=== PATIENT | male | born 1960 | race African-American/Black ===

== ENCOUNTER 2017-02-03 08:49 | Inpatient (IN) ==
[2017-02-03] MEDS ORDERED: ROCURONIUM 100 MG/10 ML VIAL IV STA ×2 (08:55→10:30)
[2017-02-03] MEDS ORDERED: NITROGLYCERIN DRIP 50 MG/250 ML BOTTLE IV ONE (08:58)
[2017-02-03] MEDS ORDERED: FUROSEMIDE 100 MG/10 ML VIAL ONE (08:58)
[2017-02-03] MEDS ORDERED: PROPOFOL 1,000 MG/100 ML BOTTLE IV ONE ×2 (08:58→11:45)
[2017-02-03] MEDS ORDERED: ETOMIDATE 20 MG/10 ML VIAL IV ONE ×2 (08:58→09:10)
[2017-02-03] MEDS: PROPOFOL 1,000 MG/100 ML BOTTLE IV SCH ×5 (09:00→22:06)
[2017-02-03] MEDS ORDERED: FUROSEMIDE 100 MG/10 ML VIAL IV STA (09:09)
[2017-02-03] MEDS: NITROGLYCERIN DRIP 50 MG/250 ML BOTTLE IV SCH (09:10)
[2017-02-03 09:55] LABS: ABG Base Excess 1.3 MMOL/L (-2.5-2.5); ABG HCO3 25.6 MMOL/L (20-26); ABG Oxygen Saturation 99.5 % (95-100); ABG PCO2 60.1 MM HG (35-48); ABG PH 7.299 (7.35-7.45)
[2017-02-03 10:16] LABS: Basophils # 0.1 10*3/uL (0.0-0.2); Basophils % 0.6 % (0.0-0.8); Eosinophils # 0.3 10*3/uL (0.0-0.87); Eosinophils % 3.2 % (0.00-10.9); Hematocrit 41.2 VOL% (42.0-52.0); Hemoglobin 13.8 GM/DL (14.0-18.0); Immature Granulocytes % 0.6 %; Immature Granulocytes Absolute 0.05 #; Lymphocytes # 3.7 10*3/uL (1.4-4.0); Lymphocytes % 43.8 % (21.2-54.2); Mean Corpuscular HGB Conc 33.5 GM/DL (32-36); Mean Corpuscular Hemoglobin 31 PG (27-34); Mean Corpuscular Volume 93.4 FL (87-102); Mean Platelet Volume 9.9 FL (9.6-12.0); Monocytes % 11.7 % (1.7-12.7); Neutrophils # 3.4 10*3/uL (1.4-7.4); Neutrophils % 40.1 % (38.7-73.9); Platelet Count 282 T/CUMM (130-400); Red Blood Count 4.41 MC/CUMM (3.8-5.5); Red Cell Distribution Width 12.4 % (9.3-17.3); White Blood Count 8.5 T/CUMM (4-12)
[2017-02-03] MEDS ORDERED: ROCURONIUM 100 MG/10 ML VIAL IV ONE (10:17)
[2017-02-03 10:23] LABS: INR 0.9; PT Patient Result 9.5 SECS; Partial Thromboplastin Time 23.8 SECS (0-40)
[2017-02-03 10:31] LABS: Apearance,Urine CLEAR (Clear); Bilirubin,Urine Negative (Negative); Blood, Urine Moderate mg/dL (Negative); Glucose,Urine (UA) Negative (Negative); Ketones,Urine Negative (Negative); Mucus,Urine Occasional /LPF (Occasional); Nitrite,Urine Negative (Negative); Protein,Urine 30 MG/DL; RBC,Urine 2 /HPF (0-4); Squamous Epithelial Cell,Urine Occasional /HPF (0-10); Urine Color Straw (Yellow); Urine Urobilinogen < 2.0 EU/DL (0.2-1.0)
[2017-02-03 10:40] LABS: Barbiturates Screen,Urine Negative (Negative); Benzodiazepines Screen,Urine Negative (Negative); Cannabinoid Screen,Urine Negative (Negative); Opiate Screen,Urine Positive (Negative); Phencyclidine Screen,Urine Negative (Negative)
[2017-02-03 10:55] LABS: Alanine Aminotransferase 30 U/L (16-61); Alkaline Phosphatase 100 U/L (45-117); Aspartate Amino Transferase 29 U/L (0-37); Blood Urea Nitrogen 18 MG/DL (7-18); Calcium 8.8 MG/DL (8.5-10.1); Glucose 139 MG/DL (74-106); Osmolality,Calculated 280.5 MOS/KG (273-304); Potassium 3.2 MMOL/L (3.5-5.1); Sodium 139 MMOL/L (136-145); Total Protein 8.1 G/DL (6.4-8.3); Troponin I Only < 0.015 NG/ML (0.00-0.045)
[2017-02-03] MEDS ORDERED: hydrALAZINE 20 MG/1 ML VIAL IV PRN (14:11)
[2017-02-03] MEDS ORDERED: HYDROmorphone 2 MG/1 ML VIAL ONE (14:16)
[2017-02-03] MEDS: HYDROmorphone 2 MG/1 ML VIAL IV SCH ×6 (14:31→23:40)
[2017-02-03 14:34] LABS: ABG Base Excess 2.4 MMOL/L (-2.5-2.5); ABG HCO3 26.5 MMOL/L (20-26); ABG Oxygen Saturation 98.9 % (95-100); ABG PCO2 49.1 MM HG (35-48); ABG PH 7.373 (7.35-7.45); ABG TCO2 24.9 MMOL/L (23-27)
[2017-02-03] MEDS: SODIUM CHLORIDE 0.9% 1,000 ML IV SCH ×2 (15:05→21:36)
[2017-02-03] MEDS: ENOXAPARIN 40 MG/0.4 ML SYRINGE SUBCUT SCH (15:45)
[2017-02-03 20:28] LABS: ABG Base Excess 3.7 MMOL/L (-2.5-2.5); ABG HCO3 27.7 MMOL/L (20-26); ABG Oxygen Saturation 97.7 % (95-100); ABG PCO2 53.2 MM HG (35-48); ABG PH 7.364 (7.35-7.45); ABG TCO2 26.9 MMOL/L (23-27); Allen Test Positive; Pt O2 Delivery Device Ventilator
[2017-02-04] MEDS: PROPOFOL 1,000 MG/100 ML BOTTLE IV SCH ×4 (00:52→11:00)
[2017-02-04] MEDS: HYDROmorphone 2 MG/1 ML VIAL IV SCH ×12 (02:00→22:56)
[2017-02-04 04:15] LABS: ABG Base Excess 3.8 MMOL/L (-2.5-2.5); ABG HCO3 29.8 MMOL/L (20-26); ABG Oxygen Saturation 98.3 % (95-100); ABG PCO2 50.9 MM HG (35-48); ABG PH 7.385 (7.35-7.45); ABG PO2 148.4 MM HG (80-95); ABG TCO2 31.3 MMOL/L (23-27); Allen Test Positive; Pt O2 Delivery Device Ventilator
[2017-02-04 05:13] LABS: Basophils % 0.3 % (0.0-0.8); Eosinophils # 0.1 10*3/uL (0.0-0.87); Eosinophils % 1.1 % (0.00-10.9); Hematocrit 35.4 VOL% (42.0-52.0); Hemoglobin 11.8 GM/DL (14.0-18.0); Immature Granulocytes % 0.5 %; Immature Granulocytes Absolute 0.05 #; Lymphocytes # 2.2 10*3/uL (1.4-4.0); Lymphocytes % 20.3 % (21.2-54.2); Mean Corpuscular HGB Conc 33.3 GM/DL (32-36); Mean Corpuscular Hemoglobin 32 PG (27-34); Mean Corpuscular Volume 94.4 FL (87-102); Monocytes # 1.5 10*3/uL (0.11-0.8); Monocytes % 13.9 % (1.7-12.7); Neutrophils # 6.9 10*3/uL (1.4-7.4); Neutrophils % 63.9 % (38.7-73.9); Platelet Count 233 T/CUMM (130-400); Red Blood Count 3.75 MC/CUMM (3.8-5.5); Red Cell Distribution Width 12.6 % (9.3-17.3); White Blood Count 10.8 T/CUMM (4-12)
[2017-02-04 05:55] LABS: Osmolality,Calculated 279.4 MOS/KG (273-304); Potassium 3.8 MMOL/L (3.5-5.1)
[2017-02-04] MEDS: SODIUM CHLORIDE 0.9% 1,000 ML IV SCH ×3 (06:18→22:57)
[2017-02-04] MEDS: NITROGLYCERIN DRIP 50 MG/250 ML BOTTLE IV SCH (09:02)
[2017-02-04] MEDS: methylPREDNISolone SOD SUC 40 MG/1 ML VIAL IV SCH ×2 (09:09→20:22)
[2017-02-04] MEDS: CEFEPIME 1,000 MG in SYRINGE 1 EACH IV SCH ×2 (09:12→20:23)
[2017-02-04 11:35] LABS: Allen Test Positive; Pt O2 Delivery Device Ventilator
[2017-02-04 11:36] LABS: ABG Base Excess 2.8 MMOL/L (-2.5-2.5); ABG HCO3 26.8 MMOL/L (20-26); ABG PCO2 49.4 MM HG (35-48); ABG PH 7.375 (7.35-7.45); ABG PO2 83.8 MM HG (80-95); ABG TCO2 25.5 MMOL/L (23-27)
[2017-02-04] MEDS: ALBUTEROL/IPRATROPIUM 3 ML NEB RESP TX SCH ×2 (12:12→19:27)
[2017-02-04 13:45] LABS: Allen Test Positive; Pt O2 Delivery Device Venturi Mask
[2017-02-04 14:01] LABS: ABG Base Excess 1.8 MMOL/L (-2.5-2.5); ABG HCO3 26.3 MMOL/L (20-26); ABG Oxygen Saturation 92.9 % (95-100); ABG PH 7.425 (7.35-7.45); ABG PO2 62.2 MM HG (80-95); ABG TCO2 27.6 MMOL/L (23-27)
[2017-02-04] MEDS: ENOXAPARIN 40 MG/0.4 ML SYRINGE SUBCUT SCH (14:42)
[2017-02-05] MEDS: HYDROmorphone 2 MG/1 ML VIAL IV SCH ×13 (00:33→22:04)
[2017-02-05] MEDS: ALBUTEROL/IPRATROPIUM 3 ML NEB RESP TX SCH ×4 (00:46→20:08)
[2017-02-05] MEDS: methylPREDNISolone SOD SUC 40 MG/1 ML VIAL IV SCH ×2 (08:18→20:44)
[2017-02-05] MEDS: SODIUM CHLORIDE 0.9% 1,000 ML IV SCH ×3 (08:20→16:30)
[2017-02-05] MEDS: CEFEPIME 1,000 MG in SYRINGE 1 EACH IV SCH ×2 (08:20→20:45)
[2017-02-05] MEDS: PROPOFOL 1,000 MG/100 ML BOTTLE IV SCH ×2 (09:09→11:53)
[2017-02-05] MEDS: NITROGLYCERIN DRIP 50 MG/250 ML BOTTLE IV SCH (09:09)
[2017-02-05] MEDS: PRAVASTATIN 20 MG TABLET PO SCH (10:19)
[2017-02-05] MEDS: VALSARTAN/HCTZ 160-12.5 MG TABLET PO SCH (10:19)
[2017-02-05] MEDS: PANTOPRAZOLE 40 MG TABLET PO SCH (10:19)
[2017-02-05] MEDS: DILTIAZEM CD 240 MG CAPSULE PO SCH (10:19)
[2017-02-05] MEDS: CETIRIZINE 10 MG TABLET PO SCH (10:19)
[2017-02-05] MEDS: ENOXAPARIN 40 MG/0.4 ML SYRINGE SUBCUT SCH (14:40)
[2017-02-05] MEDS ORDERED: LIDOCAINE 1% 20 ML VIAL MISC INJ ONE (19:16)
[2017-02-06] MEDS: SODIUM CHLORIDE 0.9% 1,000 ML IV SCH ×4 (00:33→16:53)
[2017-02-06] MEDS: HYDROmorphone 2 MG/1 ML VIAL IV SCH ×9 (00:33→21:05)
[2017-02-06] MEDS: ALBUTEROL/IPRATROPIUM 3 ML NEB RESP TX SCH ×4 (01:20→19:59)
[2017-02-06] MEDS: methylPREDNISolone SOD SUC 40 MG/1 ML VIAL IV SCH ×2 (08:56→22:19)
[2017-02-06] MEDS: CEFEPIME 1,000 MG in SYRINGE 1 EACH IV SCH ×2 (08:56→22:22)
[2017-02-06] MEDS: CETIRIZINE 10 MG TABLET PO SCH (08:57)
[2017-02-06] MEDS: DILTIAZEM CD 240 MG CAPSULE PO SCH (08:57)
[2017-02-06] MEDS: PANTOPRAZOLE 40 MG TABLET PO SCH (08:57)
[2017-02-06] MEDS: VALSARTAN/HCTZ 160-12.5 MG TABLET PO SCH (08:57)
[2017-02-06] MEDS: PRAVASTATIN 20 MG TABLET PO SCH (08:57)
[2017-02-06] MEDS: PROPOFOL 1,000 MG/100 ML BOTTLE IV SCH ×2 (10:51→12:22)
[2017-02-06] MEDS: NITROGLYCERIN DRIP 50 MG/250 ML BOTTLE IV SCH (10:52)
[2017-02-06] MEDS: ENOXAPARIN 40 MG/0.4 ML SYRINGE SUBCUT SCH (16:58)
[2017-02-07] MEDS: ALBUTEROL/IPRATROPIUM 3 ML NEB RESP TX SCH ×4 (00:40→19:19)
[2017-02-07] MEDS: SODIUM CHLORIDE 0.9% 1,000 ML IV SCH ×5 (00:54→17:11)
[2017-02-07] MEDS: HYDROmorphone 2 MG/1 ML VIAL IV SCH ×11 (01:00→21:33)
[2017-02-07 05:10] LABS: Basophils % 0.1 % (0.0-0.8); Hematocrit 31.7 VOL% (42.0-52.0); Hemoglobin 10.2 GM/DL (14.0-18.0); Immature Granulocytes % 1.4 %; Lymphocytes # 1.2 10*3/uL (1.4-4.0); Lymphocytes % 8.8 % (21.2-54.2); Mean Corpuscular HGB Conc 32.2 GM/DL (32-36); Mean Corpuscular Hemoglobin 31 PG (27-34); Mean Corpuscular Volume 96.9 FL (87-102); Monocytes # 0.7 10*3/uL (0.11-0.8); Monocytes % 5.3 % (1.7-12.7); Neutrophils # 11.8 10*3/uL (1.4-7.4); Neutrophils % 84.4 % (38.7-73.9); Platelet Count 250 T/CUMM (130-400); Red Blood Count 3.27 MC/CUMM (3.8-5.5); Red Cell Distribution Width 12.5 % (9.3-17.3)
[2017-02-07 05:38] LABS: Osmolality,Calculated 284.3 MOS/KG (273-304); Potassium 4.2 MMOL/L (3.5-5.1)
[2017-02-07] MEDS: CEFEPIME 1,000 MG in SYRINGE 1 EACH IV SCH ×2 (09:07→21:35)
[2017-02-07] MEDS: PANTOPRAZOLE 40 MG TABLET PO SCH (09:08)
[2017-02-07] MEDS: CETIRIZINE 10 MG TABLET PO SCH (09:08)
[2017-02-07] MEDS: VALSARTAN/HCTZ 160-12.5 MG TABLET PO SCH (09:08)
[2017-02-07] MEDS: PRAVASTATIN 20 MG TABLET PO SCH (09:08)
[2017-02-07] MEDS: DILTIAZEM CD 240 MG CAPSULE PO SCH (09:08)
[2017-02-07] MEDS: methylPREDNISolone SOD SUC 40 MG/1 ML VIAL IV SCH ×2 (09:11→21:30)
[2017-02-07] MEDS: PROPOFOL 1,000 MG/100 ML BOTTLE IV SCH (10:53)
[2017-02-07] MEDS: NITROGLYCERIN DRIP 50 MG/250 ML BOTTLE IV SCH (10:54)
[2017-02-07] MEDS: ENOXAPARIN 40 MG/0.4 ML SYRINGE SUBCUT SCH (16:56)
[2017-02-08] MEDS: ALBUTEROL/IPRATROPIUM 3 ML NEB RESP TX SCH ×3 (01:05→12:13)
[2017-02-08] MEDS: HYDROmorphone 2 MG/1 ML VIAL IV SCH ×6 (01:37→12:52)
[2017-02-08] MEDS: SODIUM CHLORIDE 0.9% 1,000 ML IV SCH ×3 (02:00→07:53)
[2017-02-08] MEDS: PANTOPRAZOLE 40 MG TABLET PO SCH (09:00)
[2017-02-08] MEDS: PRAVASTATIN 20 MG TABLET PO SCH (09:00)
[2017-02-08] MEDS: DILTIAZEM CD 240 MG CAPSULE PO SCH (09:00)
[2017-02-08] MEDS: CETIRIZINE 10 MG TABLET PO SCH (09:00)
[2017-02-08] MEDS: VALSARTAN/HCTZ 160-12.5 MG TABLET PO SCH (09:00)
[2017-02-08] MEDS: NITROGLYCERIN DRIP 50 MG/250 ML BOTTLE IV SCH (10:29)
[2017-02-08 11:22] VITALS: BP 179/94
== END 2017-02-08 13:00 | disposition home or self-care (01) | DRG 208 ==
LOC: EDUNIT# → EDBD → N.ED 08:49 → SUATTDRO 09:44 → N.EDINP 09:44 → N.CC 13:54
PROVIDERS: ATTEND Internal Medicine Geriatric Medicine

== ENCOUNTER 2017-02-14 11:03 | Inpatient (IN) ==
[2017-02-14 11:44] LABS: Basophils % 0.3 % (0.0-0.8); Eosinophils # 0.2 10*3/uL (0.0-0.87); Eosinophils % 1.6 % (0.00-10.9); Hematocrit 39.6 VOL% (42.0-52.0); Hemoglobin 13.3 GM/DL (14.0-18.0); Immature Granulocytes % 1.7 %; Immature Granulocytes Absolute 0.16 #; Lymphocytes # 2.2 10*3/uL (1.4-4.0); Lymphocytes % 23.6 % (21.2-54.2); Mean Corpuscular HGB Conc 33.6 GM/DL (32-36); Mean Corpuscular Hemoglobin 32 PG (27-34); Mean Corpuscular Volume 94.1 FL (87-102); Mean Platelet Volume 9.8 FL (9.6-12.0); Monocytes # 1.3 10*3/uL (0.11-0.8); Monocytes % 14.2 % (1.7-12.7); Neutrophils # 5.4 10*3/uL (1.4-7.4); Neutrophils % 58.6 % (38.7-73.9); Platelet Count 355 T/CUMM (130-400); Red Blood Count 4.21 MC/CUMM (3.8-5.5); Red Cell Distribution Width 12.6 % (9.3-17.3); White Blood Count 9.2 T/CUMM (4-12)
[2017-02-14] MEDS ORDERED: PROPOFOL 200 MG/20 ML VIAL IV ONE (11:58)
[2017-02-14] MEDS ORDERED: ONDANSETRON 4 MG/2 ML VIAL ONE (12:24)
[2017-02-14] MEDS ORDERED: HYDROmorphone 2 MG/1 ML VIAL ONE (12:24)
[2017-02-14] MEDS ORDERED: ACETAMINOPHEN 325 MG TABLET PO PRN (12:44)
[2017-02-14] MEDS ORDERED: ONDANSETRON 4 MG/2 ML VIAL IV PRN (12:44)
[2017-02-14 13:20] LABS: Albumin 3.5 G/DL (3.4-5.0); Bilirubin,Total 0.6 MG/DL (0.2-1.0); Calcium 8.8 MG/DL (8.5-10.1); Potassium 4.7 MMOL/L (3.5-5.1); Total Protein 7.7 G/DL (6.4-8.3)
[2017-02-14] MEDS ORDERED: HYDROmorphone 2 MG/1 ML VIAL IV STA (14:28)
[2017-02-14] MEDS: MORPHINE 2 MG/1 ML SYRINGE IV PRN ×2 (17:29→21:39)
[2017-02-15] MEDS: MORPHINE 2 MG/1 ML SYRINGE IV PRN ×2 (01:25→05:50)
[2017-02-15] MEDS: PANTOPRAZOLE 40 MG TABLET PO SCH (08:56)
[2017-02-15] MEDS: KETOROLAC 30 MG/1 ML VIAL IV SCH ×3 (09:57→21:40)
[2017-02-16] MEDS ORDERED: BUPIVACAINE LIPOSOMAL 20 ML/266 MG VIAL INFILTRAT ONE (00:01)
[2017-02-16] MEDS: CEFUROXIME INJ 1,500 MG in SYRINGE 1 EACH IV SCH ×4 (01:15→23:27)
[2017-02-16] MEDS: HYDROmorphone 2 MG/1 ML VIAL IV PRN ×3 (01:21→23:43)
[2017-02-16] MEDS: KETOROLAC 30 MG/1 ML VIAL IV SCH ×4 (05:12→22:25)
[2017-02-16] MEDS: PANTOPRAZOLE 40 MG TABLET PO SCH (10:01)
[2017-02-16] MEDS ORDERED: TISSUE ADHESIVE 1 EACH APPLICATOR TOP ONE (10:09)
[2017-02-16] MEDS ORDERED: TALC INTRAPLEURAL POWDER 5 GM BOTTLE INTRAPLEUR ONE (10:10)
[2017-02-16] MEDS ORDERED: BUPIVACAINE LIPOSOMAL 20 ML/266 MG VIAL ONE (10:10)
[2017-02-16] MEDS ORDERED: ALBUTEROL/IPRATROPIUM 3 ML NEB RESP TX ONE (10:21)
[2017-02-16] MEDS ORDERED: ALBUTEROL 2.5 MG/3 ML NEB RESP TX ONE ×2 (10:39→12:49)
[2017-02-16] MEDS ORDERED: KETOROLAC 30 MG/1 ML VIAL ONE ×2 (12:46→13:02)
[2017-02-16] MEDS ORDERED: ACETAMINOPHEN 1,000 MG/100 ML VIAL IV ONE (12:46)
[2017-02-16] MEDS ORDERED: ACETAMINOPHEN INJ 1,000 MG in PREMIX 1 EACH IV ONE (12:48)
[2017-02-16] MEDS ORDERED: KETOROLAC 30 MG/1 ML VIAL IV ONE (12:48)
[2017-02-16] MEDS ORDERED: fentaNYL 100 MCG/2 ML VIAL ONE (13:02)
[2017-02-16] MEDS ORDERED: DEXAMETHASONE 4 MG/1 ML VIAL ONE (13:02)
[2017-02-16] MEDS ORDERED: PROPOFOL 200 MG/20 ML VIAL IV ONE (13:02)
[2017-02-16] MEDS ORDERED: SEVOFLURANE 1 UNIT/15 MINUTE INH ONE (13:02)
[2017-02-16] MEDS ORDERED: LABETALOL 100 MG/20 ML VIAL IV ONE (13:02)
[2017-02-16] MEDS ORDERED: DEXAMETHASONE 10 MG/1 ML VIAL ONE (13:02)
[2017-02-16] MEDS ORDERED: ONDANSETRON 4 MG/2 ML VIAL ONE (13:02)
[2017-02-16] MEDS ORDERED: MIDAZOLAM 2 MG/2 ML VIAL ONE (13:02)
[2017-02-16] MEDS ORDERED: PHENYLEPHRINE 50 MG/5 ML VIAL ONE (13:03)
[2017-02-16] MEDS ORDERED: SUCCINYLCHOLINE 200 MG/10 ML VIAL ONE (13:03)
[2017-02-16] MEDS ORDERED: GLYCOPYRROLATE 0.4 MG/2 ML VIAL ONE (13:03)
[2017-02-16] MEDS ORDERED: LACTATED RINGERS 1,000 ML IV ONE (13:03)
[2017-02-16] MEDS ORDERED: ESMOLOL 100 MG/10 ML VIAL IV ONE (13:03)
[2017-02-16] MEDS ORDERED: ROCURONIUM 100 MG/10 ML VIAL IV ONE (13:03)
[2017-02-16 13:04] LABS: Apearance,Urine CLEAR (Clear); Bacteria,Urine Occasional /HPF (Few); Bilirubin,Urine Negative (Negative); Blood, Urine Moderate mg/dL (Negative); Glucose,Urine (UA) Negative (Negative); Hyaline Casts,Urine 2 /LPF (0-3); Ketones,Urine 5 mg/dL (Negative); Mucus,Urine Occasional /LPF (Occasional); Nitrite,Urine Negative (Negative); Protein,Urine 30 MG/DL; RBC,Urine 13 /HPF (0-4); Squamous Epithelial Cell,Urine Occasional /HPF (0-10); Urine Color Amber (Yellow); WBC,Urine 2 /HPF (0-6)
[2017-02-16 15:35] LABS: Basophils % 0.2 % (0.0-0.8); Eosinophils % 0.1 % (0.00-10.9); Hematocrit 34.8 VOL% (42.0-52.0); Hemoglobin 11.5 GM/DL (14.0-18.0); Immature Granulocytes % 1.1 %; Lymphocytes # 0.8 10*3/uL (1.4-4.0); Lymphocytes % 4.4 % (21.2-54.2); Mean Corpuscular Hemoglobin 31 PG (27-34); Mean Corpuscular Volume 94.3 FL (87-102); Mean Platelet Volume 9.6 FL (9.6-12.0); Monocytes # 0.9 10*3/uL (0.11-0.8); Monocytes % 4.8 % (1.7-12.7); Neutrophils # 15.9 10*3/uL (1.4-7.4); Neutrophils % 89.4 % (38.7-73.9); Platelet Count 337 T/CUMM (130-400); Red Blood Count 3.69 MC/CUMM (3.8-5.5); Red Cell Distribution Width 12.5 % (9.3-17.3); White Blood Count 17.8 T/CUMM (4-12)
[2017-02-16 16:01] LABS: Calcium 8.1 MG/DL (8.5-10.1); Osmolality,Calculated 275.7 MOS/KG (273-304); Potassium 4.6 MMOL/L (3.5-5.1)
[2017-02-16 16:07] LABS: Band Neutrophils 3 % (0-10); Lymphocytes 2 % (20-55); Platelet Estimate Normal; Segmented Neutrophils 89 % (50-85); Total Cells Counted 100
[2017-02-16] MEDS: KETOROLAC 15 MG/1 ML VIAL IV SCH ×2 (16:59→20:56)
[2017-02-16] MEDS: GABAPENTIN 100 MG CAPSULE PO SCH (20:41)
[2017-02-16] MEDS: ACETAMINOPHEN INJ 1,000 MG in PREMIX 1 EACH IV SCH (20:57)
[2017-02-16] MEDS ORDERED: CEFUROXIME INJ 1,500 MG in SYRINGE 1 EACH IV SCH (22:27)
[2017-02-17] MEDS: KETOROLAC 15 MG/1 ML VIAL IV SCH ×4 (02:07→21:00)
[2017-02-17] MEDS: ACETAMINOPHEN INJ 1,000 MG in PREMIX 1 EACH IV SCH (02:08)
[2017-02-17] MEDS: KETOROLAC 30 MG/1 ML VIAL IV SCH (04:35)
[2017-02-17 05:02] LABS: Basophils # 0.1 10*3/uL (0.0-0.2); Basophils % 0.3 % (0.0-0.8); Hematocrit 32.5 VOL% (42.0-52.0); Hemoglobin 10.8 GM/DL (14.0-18.0); Immature Granulocytes % 1.1 %; Immature Granulocytes Absolute 0.27 #; Lymphocytes # 1.4 10*3/uL (1.4-4.0); Mean Corpuscular HGB Conc 33.2 GM/DL (32-36); Mean Corpuscular Hemoglobin 31 PG (27-34); Mean Corpuscular Volume 94.5 FL (87-102); Mean Platelet Volume 9.8 FL (9.6-12.0); Monocytes # 2.4 10*3/uL (0.11-0.8); Monocytes % 10.2 % (1.7-12.7); Neutrophils # 19.8 10*3/uL (1.4-7.4); Neutrophils % 82.4 % (38.7-73.9); Platelet Count 344 T/CUMM (130-400); Red Blood Count 3.44 MC/CUMM (3.8-5.5); Red Cell Distribution Width 12.3 % (9.3-17.3)
[2017-02-17 05:25] LABS: Calcium 8.1 MG/DL (8.5-10.1); Osmolality,Calculated 277.7 MOS/KG (273-304); Potassium 4.9 MMOL/L (3.5-5.1)
[2017-02-17] MEDS: HYDROmorphone 2 MG/1 ML VIAL IV PRN ×3 (05:27→13:12)
[2017-02-17] MEDS ORDERED: traMADol 50 MG TABLET PO PRN (06:00)
[2017-02-17 07:14] LABS: Giant Platelets Few; Hypochromasia Slight; Lymphocytes 8 % (20-55); Platelet Estimate Adequate; Segmented Neutrophils 85 % (50-85); Total Cells Counted 100
[2017-02-17] MEDS: CELECOXIB 200 MG CAPSULE PO SCH ×2 (08:29→21:00)
[2017-02-17] MEDS: GABAPENTIN 100 MG CAPSULE PO SCH ×3 (08:29→21:00)
[2017-02-17] MEDS: ACETAMINOPHEN 500 MG TABLET PO SCH ×3 (08:29→21:01)
[2017-02-17] MEDS: PANTOPRAZOLE 40 MG TABLET PO SCH (08:29)
[2017-02-17] MEDS ORDERED: PANTOPRAZOLE 40 MG VIAL IV SCH (09:00)
[2017-02-17] MEDS: CEFUROXIME INJ 1,500 MG in SYRINGE 1 EACH IV SCH ×3 (10:33→23:52)
[2017-02-17] MEDS ORDERED: FLUTICASONE 50 MCG NASAL SPRAY 16 GM BOTTLE BOTH NARES PRN (15:21)
[2017-02-17] MEDS: DILTIAZEM CD 240 MG CAPSULE PO SCH (15:58)
[2017-02-17] MEDS: PRAVASTATIN 20 MG TABLET PO SCH (15:58)
[2017-02-17] MEDS: CETIRIZINE 10 MG TABLET PO SCH (15:58)
[2017-02-17] MEDS: VALSARTAN/HCTZ 160-12.5 MG TABLET PO SCH (15:58)
[2017-02-18] MEDS: ACETAMINOPHEN 500 MG TABLET PO SCH ×4 (01:34→20:43)
[2017-02-18] MEDS: KETOROLAC 15 MG/1 ML VIAL IV SCH ×2 (01:34→08:55)
[2017-02-18 05:07] LABS: Basophils % 0.2 % (0.0-0.8); Eosinophils # 0.1 10*3/uL (0.0-0.87); Eosinophils % 0.6 % (0.00-10.9); Hematocrit 30.4 VOL% (42.0-52.0); Immature Granulocytes % 0.8 %; Immature Granulocytes Absolute 0.14 #; Lymphocytes # 2.7 10*3/uL (1.4-4.0); Lymphocytes % 15.6 % (21.2-54.2); Mean Corpuscular HGB Conc 32.9 GM/DL (32-36); Mean Corpuscular Hemoglobin 31 PG (27-34); Mean Corpuscular Volume 94.1 FL (87-102); Mean Platelet Volume 9.9 FL (9.6-12.0); Monocytes # 1.6 10*3/uL (0.11-0.8); Monocytes % 9.6 % (1.7-12.7); Neutrophils # 12.5 10*3/uL (1.4-7.4); Neutrophils % 73.2 % (38.7-73.9); Platelet Count 350 T/CUMM (130-400); Red Blood Count 3.23 MC/CUMM (3.8-5.5); Red Cell Distribution Width 12.9 % (9.3-17.3); White Blood Count 17.1 T/CUMM (4-12)
[2017-02-18 05:34] LABS: Osmolality,Calculated 290.1 MOS/KG (273-304); Potassium 3.8 MMOL/L (3.5-5.1)
[2017-02-18] MEDS: CELECOXIB 200 MG CAPSULE PO SCH ×2 (08:54→21:17)
[2017-02-18] MEDS: GABAPENTIN 100 MG CAPSULE PO SCH ×3 (08:54→21:17)
[2017-02-18] MEDS: VALSARTAN/HCTZ 160-12.5 MG TABLET PO SCH (08:55)
[2017-02-18] MEDS: CETIRIZINE 10 MG TABLET PO SCH (08:55)
[2017-02-18] MEDS: DILTIAZEM CD 240 MG CAPSULE PO SCH (08:55)
[2017-02-18] MEDS: PANTOPRAZOLE 40 MG TABLET PO SCH (08:55)
[2017-02-18] MEDS: PRAVASTATIN 20 MG TABLET PO SCH (08:55)
[2017-02-18] MEDS: CEFUROXIME INJ 1,500 MG in SYRINGE 1 EACH IV SCH ×2 (08:56→15:15)
[2017-02-18] MEDS ORDERED: BISACODYL 5 MG TABLET PO PRN (19:03)
[2017-02-18] MEDS: HYDROmorphone 2 MG/1 ML VIAL IV PRN (22:49)
[2017-02-19] MEDS: CEFUROXIME INJ 1,500 MG in SYRINGE 1 EACH IV SCH ×3 (00:20→16:36)
[2017-02-19] MEDS: ACETAMINOPHEN 500 MG TABLET PO SCH ×4 (02:06→21:00)
[2017-02-19] MEDS: HYDROmorphone 2 MG/1 ML VIAL IV PRN ×2 (04:30→15:24)
[2017-02-19 05:54] LABS: Basophils # 0.1 10*3/uL (0.0-0.2); Basophils % 0.4 % (0.0-0.8); Eosinophils # 0.4 10*3/uL (0.0-0.87); Eosinophils % 2.4 % (0.00-10.9); Hematocrit 30.9 VOL% (42.0-52.0); Immature Granulocytes % 1.5 %; Immature Granulocytes Absolute 0.21 #; Lymphocytes # 3.1 10*3/uL (1.4-4.0); Lymphocytes % 21.2 % (21.2-54.2); Mean Corpuscular HGB Conc 32.4 GM/DL (32-36); Mean Corpuscular Hemoglobin 31 PG (27-34); Mean Corpuscular Volume 95.4 FL (87-102); Mean Platelet Volume 10.1 FL (9.6-12.0); Monocytes # 1.8 10*3/uL (0.11-0.8); Monocytes % 12.4 % (1.7-12.7); NRBC # 0.02 10*3/uL; Neutrophils % 62.1 % (38.7-73.9); Platelet Count 400 T/CUMM (130-400); Red Blood Count 3.24 MC/CUMM (3.8-5.5); Red Cell Distribution Width 13.2 % (9.3-17.3); White Blood Count 14.4 T/CUMM (4-12)
[2017-02-19 06:18] LABS: Calcium 8.1 MG/DL (8.5-10.1); Osmolality,Calculated 284.3 MOS/KG (273-304); Potassium 4.5 MMOL/L (3.5-5.1)
[2017-02-19] MEDS: PANTOPRAZOLE 40 MG TABLET PO SCH (08:35)
[2017-02-19] MEDS: CETIRIZINE 10 MG TABLET PO SCH (08:36)
[2017-02-19] MEDS: PRAVASTATIN 20 MG TABLET PO SCH (08:36)
[2017-02-19] MEDS: CELECOXIB 200 MG CAPSULE PO SCH ×2 (08:36→21:25)
[2017-02-19] MEDS: VALSARTAN/HCTZ 160-12.5 MG TABLET PO SCH (08:36)
[2017-02-19] MEDS: DILTIAZEM CD 240 MG CAPSULE PO SCH (08:36)
[2017-02-19] MEDS: GABAPENTIN 100 MG CAPSULE PO SCH ×3 (08:37→21:25)
[2017-02-19] MEDS: ONDANSETRON 4 MG/2 ML VIAL IV PRN ×2 (10:50→21:25)
[2017-02-19] MEDS ORDERED: MAGNESIUM HYDROXIDE SUSP 30 ML UDCUP PO PRN (14:43)
[2017-02-19] MEDS: ALBUTEROL/IPRATROPIUM 3 ML NEB RESP TX SCH ×3 (16:48→23:02)
[2017-02-20] MEDS: ACETAMINOPHEN 500 MG TABLET PO SCH ×4 (02:00→21:51)
[2017-02-20] MEDS: ALBUTEROL/IPRATROPIUM 3 ML NEB RESP TX SCH ×5 (03:15→19:36)
[2017-02-20] MEDS: VALSARTAN/HCTZ 160-12.5 MG TABLET PO SCH (09:53)
[2017-02-20] MEDS: CELECOXIB 200 MG CAPSULE PO SCH ×2 (09:53→20:56)
[2017-02-20] MEDS: DILTIAZEM CD 240 MG CAPSULE PO SCH (09:53)
[2017-02-20] MEDS: CETIRIZINE 10 MG TABLET PO SCH (09:54)
[2017-02-20] MEDS: GABAPENTIN 100 MG CAPSULE PO SCH ×3 (09:54→20:56)
[2017-02-20] MEDS: PANTOPRAZOLE 40 MG TABLET PO SCH (09:54)
[2017-02-20] MEDS: PRAVASTATIN 20 MG TABLET PO SCH (09:54)
[2017-02-20] MEDS: CEFUROXIME INJ 1,500 MG in SYRINGE 1 EACH IV SCH ×3 (09:55→17:19)
[2017-02-20] MEDS: HYDROmorphone 2 MG/1 ML VIAL IV PRN ×2 (11:49→17:56)
[2017-02-21] MEDS: CEFUROXIME INJ 1,500 MG in SYRINGE 1 EACH IV SCH ×2 (00:06→08:36)
[2017-02-21] MEDS: ALBUTEROL/IPRATROPIUM 3 ML NEB RESP TX SCH ×3 (01:42→07:22)
[2017-02-21] MEDS: ACETAMINOPHEN 500 MG TABLET PO SCH ×2 (02:05→08:35)
[2017-02-21] MEDS: HYDROmorphone 2 MG/1 ML VIAL IV PRN ×2 (02:12→08:36)
[2017-02-21 07:47] VITALS: BP 122/56
[2017-02-21] MEDS: VALSARTAN/HCTZ 160-12.5 MG TABLET PO SCH (08:34)
[2017-02-21] MEDS: CETIRIZINE 10 MG TABLET PO SCH (08:35)
[2017-02-21] MEDS: DILTIAZEM CD 240 MG CAPSULE PO SCH (08:35)
[2017-02-21] MEDS: PRAVASTATIN 20 MG TABLET PO SCH (08:35)
[2017-02-21] MEDS: CELECOXIB 200 MG CAPSULE PO SCH (08:35)
[2017-02-21] MEDS: GABAPENTIN 100 MG CAPSULE PO SCH (08:35)
[2017-02-21] MEDS: PANTOPRAZOLE 40 MG TABLET PO SCH (08:35)
== END 2017-02-21 09:55 | disposition home health service (06) | DRG 165 ==
LOC: N.ED 11:03 → N.EDINP 12:43 → N.5E 15:42 → N.ICU 02-16 13:42 → N.TELES 02-17 15:20
PROVIDERS: ADMIT Surgery; ATTEND Thoracic Surgery (Cardiothoracic Vascular Surgery)

== ENCOUNTER 2018-02-12 05:47 | Inpatient (IN) ==
[2018-02-12] MEDS ORDERED: ALUM/MAG/SIMETH/LIDO VISC 1:1 30 ML BOTTLE PO STA (06:11)
[2018-02-12] MEDS ORDERED: PANTOPRAZOLE 40 MG VIAL IV STA (06:11)
[2018-02-12] MEDS ORDERED: ONDANSETRON 4 MG/2 ML VIAL IV STA (06:11)
[2018-02-12 06:45] LABS: Basophils % 0.4 % (0.0-0.8); Eosinophils # 0.2 10*3/uL (0.0-0.87); Eosinophils % 2.1 % (0.00-10.9); Hematocrit 35.3 VOL% (42.0-52.0); Hemoglobin 11.7 GM/DL (14.0-18.0); Immature Granulocytes % 0.4 %; Immature Granulocytes Absolute 0.04 #; Lymphocytes # 2.8 10*3/uL (1.4-4.0); Lymphocytes % 31.2 % (21.2-54.2); Mean Corpuscular HGB Conc 33.1 GM/DL (32-36); Mean Corpuscular Hemoglobin 31 PG (27-34); Mean Corpuscular Volume 92.7 FL (87-102); Mean Platelet Volume 9.9 FL (9.6-12.0); Monocytes # 0.8 10*3/uL (0.11-0.8); Monocytes % 9.3 % (1.7-12.7); Neutrophils % 56.6 % (38.7-73.9); Platelet Count 264 T/CUMM (130-400); Red Blood Count 3.81 MC/CUMM (3.8-5.5); Red Cell Distribution Width 12.2 % (9.3-17.3); White Blood Count 8.9 T/CUMM (4-12)
[2018-02-12] MEDS ORDERED: PIPERACILLIN/TAZOBACTAM 3,375 MG in SODIUM CHLORIDE 0.9% 100 ML IV STA (06:49)
[2018-02-12 07:05] LABS: Albumin 3.7 G/DL (3.4-5.0); Bilirubin,Total 0.4 MG/DL (0.2-1.0); Calcium 8.8 MG/DL (8.5-10.1); Osmolality,Calculated 273.8 MOS/KG (273-304); Potassium 3.8 MMOL/L (3.5-5.1)
[2018-02-12 08:43] LABS: Apearance,Urine CLEAR (Clear); Bilirubin,Urine Negative (Negative); Blood, Urine Small mg/dL (Negative); Glucose,Urine (UA) Negative (Negative); Ketones,Urine Negative (Negative); Nitrite,Urine Negative (Negative); Protein,Urine Negative; RBC,Urine <1 /HPF (0-4); Squamous Epithelial Cell,Urine Occasional /HPF (0-10); Urine Color Yellow (Yellow); Urine Specific Gravity 1.019 (1.001-1.035); Urine Urobilinogen < 2.0 EU/DL (0.2-1.0); WBC,Urine <1 /HPF (0-6)
[2018-02-12] MEDS: PANTOPRAZOLE 40 MG TABLET PO SCH (10:36)
[2018-02-12] MEDS ORDERED: cefOXitin 2,000 MG in SYRINGE 1 EACH IV ONE ×2 (12:14→12:30)
[2018-02-12] MEDS: ENOXAPARIN 40 MG/0.4 ML SYRINGE SUBCUT SCH (12:35)
[2018-02-12] MEDS ORDERED: TISSUE ADHESIVE 1 EACH APPLICATOR TOP ONE (12:40)
[2018-02-12] MEDS ORDERED: LIDOCAINE 1%/EPI INJ 20 ML VIAL ONE (12:40)
[2018-02-12] MEDS: LACTATED RINGERS 1,000 ML IV SCH ×2 (13:54→18:30)
[2018-02-12] MEDS ORDERED: CHLORPHENIRAMINE PO PRN (14:30)
[2018-02-12] MEDS ORDERED: ALBUTEROL/IPRATROPIUM 3 ML NEB RESP TX PRN (14:30)
[2018-02-12] MEDS ORDERED: BISACODYL 5 MG TABLET PO PRN (14:30)
[2018-02-12] MEDS ORDERED: PHENYLEPHRINE PO PRN (14:30)
[2018-02-12] MEDS ORDERED: ONDANSETRON 4 MG/2 ML VIAL ONE ×2 (14:38→14:47)
[2018-02-12] MEDS ORDERED: HYDROmorphone 2 MG/1 ML VIAL ONE (14:38)
[2018-02-12] MEDS ORDERED: ONDANSETRON 4 MG/2 ML VIAL IV PRN (14:39)
[2018-02-12] MEDS: HYDROmorphone 2 MG/1 ML VIAL IV PRN ×5 (14:40→18:47)
[2018-02-12] MEDS ORDERED: SEVOFLURANE 1 UNIT/15 MINUTE INH ONE (14:46)
[2018-02-12] MEDS ORDERED: fentaNYL 100 MCG/2 ML VIAL ONE (14:46)
[2018-02-12] MEDS ORDERED: PROPOFOL 200 MG/20 ML VIAL IV ONE (14:46)
[2018-02-12] MEDS ORDERED: ROCURONIUM 100 MG/10 ML VIAL IV ONE (14:47)
[2018-02-12] MEDS ORDERED: METOPROLOL TARTRATE 5 MG/5 ML VIAL IV ONE (14:47)
[2018-02-12] MEDS ORDERED: MIDAZOLAM 2 MG/2 ML VIAL ONE (14:47)
[2018-02-12] MEDS ORDERED: hydrALAZINE 20 MG/1 ML VIAL IV ONE (14:47)
[2018-02-12] MEDS ORDERED: ACETAMINOPHEN 1,000 MG/100 ML VIAL IV ONE (14:47)
[2018-02-12] MEDS ORDERED: MEPERIDINE 25 MG/1 ML VIAL ONE (15:03)
[2018-02-12] MEDS: MEPERIDINE 25 MG/1 ML VIAL IV PRN (15:07)
[2018-02-12] MEDS: PIPERACILLIN/TAZOBACTAM 3,375 MG in SODIUM CHLORIDE 0.9% 100 ML IV SCH ×2 (15:53→23:19)
[2018-02-12] MEDS: SIMVASTATIN 10 MG TABLET PO SCH (21:19)
[2018-02-12] MEDS: FERROUS SULFATE 325 MG TABLET PO SCH (21:19)
[2018-02-12] MEDS: ACETAMINOPHEN 325 MG TABLET PO PRN (23:15)
[2018-02-13] MEDS: LACTATED RINGERS 1,000 ML IV SCH ×2 (00:46→05:36)
[2018-02-13] MEDS: HYDROmorphone 2 MG/1 ML VIAL IV PRN ×4 (01:01→21:22)
[2018-02-13] MEDS: PIPERACILLIN/TAZOBACTAM 3,375 MG in SODIUM CHLORIDE 0.9% 100 ML IV SCH ×2 (06:00→14:17)
[2018-02-13 06:48] LABS: Basophils % 0.3 % (0.0-0.8); Eosinophils # 0.1 10*3/uL (0.0-0.87); Eosinophils % 0.9 % (0.00-10.9); Hematocrit 33.4 VOL% (42.0-52.0); Hemoglobin 10.8 GM/DL (14.0-18.0); Immature Granulocytes % 0.3 %; Immature Granulocytes Absolute 0.03 #; Lymphocytes # 2.6 10*3/uL (1.4-4.0); Lymphocytes % 26.2 % (21.2-54.2); Mean Corpuscular HGB Conc 32.3 GM/DL (32-36); Mean Corpuscular Hemoglobin 30 PG (27-34); Mean Corpuscular Volume 94.1 FL (87-102); Mean Platelet Volume 10.4 FL (9.6-12.0); Monocytes # 0.9 10*3/uL (0.11-0.8); Monocytes % 9.7 % (1.7-12.7); Neutrophils # 6.1 10*3/uL (1.4-7.4); Neutrophils % 62.6 % (38.7-73.9); Platelet Count 263 T/CUMM (130-400); Red Blood Count 3.55 MC/CUMM (3.8-5.5); Red Cell Distribution Width 12.3 % (9.3-17.3); White Blood Count 9.7 T/CUMM (4-12)
[2018-02-13 07:00] LABS: Albumin 3.2 G/DL (3.4-5.0); Calcium 8.8 MG/DL (8.5-10.1); Osmolality,Calculated 275.5 MOS/KG (273-304); Total Protein 7.8 G/DL (6.4-8.3)
[2018-02-13] MEDS: DILTIAZEM CD 240 MG CAPSULE PO SCH (08:28)
[2018-02-13] MEDS: FERROUS SULFATE 325 MG TABLET PO SCH ×2 (08:28→21:21)
[2018-02-13] MEDS: PANTOPRAZOLE 40 MG TABLET PO SCH (08:28)
[2018-02-13] MEDS: CETIRIZINE 10 MG TABLET PO SCH (08:28)
[2018-02-13] MEDS ORDERED: UMECLIDINIUM BRM INH SCH (09:00)
[2018-02-13] MEDS ORDERED: VILANTEROL TR INH SCH (09:00)
[2018-02-13] MEDS: ENOXAPARIN 40 MG/0.4 ML SYRINGE SUBCUT SCH (12:25)
[2018-02-13] MEDS: ACETAMINOPHEN 325 MG TABLET PO PRN (14:18)
[2018-02-13] MEDS: SIMVASTATIN 10 MG TABLET PO SCH (21:21)
[2018-02-14] MEDS: PIPERACILLIN/TAZOBACTAM 3,375 MG in SODIUM CHLORIDE 0.9% 100 ML IV SCH ×4 (01:02→22:12)
[2018-02-14] MEDS: HYDROmorphone 2 MG/1 ML VIAL IV PRN ×5 (02:26→22:12)
[2018-02-14 05:53] LABS: PT Patient Result 10.7 SECS
[2018-02-14 06:06] LABS: Basophils % 0.3 % (0.0-0.8); Eosinophils # 0.3 10*3/uL (0.0-0.87); Eosinophils % 3.4 % (0.00-10.9); Hematocrit 33.1 VOL% (42.0-52.0); Hemoglobin 10.6 GM/DL (14.0-18.0); Immature Granulocytes % 0.6 %; Immature Granulocytes Absolute 0.06 #; Lymphocytes # 2.6 10*3/uL (1.4-4.0); Lymphocytes % 28.2 % (21.2-54.2); Mean Corpuscular Hemoglobin 31 PG (27-34); Mean Corpuscular Volume 95.4 FL (87-102); Mean Platelet Volume 10.6 FL (9.6-12.0); Monocytes # 1.2 10*3/uL (0.11-0.8); Monocytes % 12.5 % (1.7-12.7); Neutrophils # 5.1 10*3/uL (1.4-7.4); Platelet Count 240 T/CUMM (130-400); Red Blood Count 3.47 MC/CUMM (3.8-5.5); Red Cell Distribution Width 12.3 % (9.3-17.3); White Blood Count 9.4 T/CUMM (4-12)
[2018-02-14] MEDS ORDERED: fentaNYL 100 MCG/2 ML VIAL ONE (10:11)
[2018-02-14] MEDS ORDERED: MIDAZOLAM 2 MG/2 ML VIAL ONE (10:12)
[2018-02-14] MEDS ORDERED: LIDOCAINE 2% 5 ML VIAL ONE (12:34)
[2018-02-14] MEDS ORDERED: ONDANSETRON 4 MG/2 ML VIAL ONE (12:34)
[2018-02-14] MEDS ORDERED: SUCCINYLCHOLINE 200 MG/10 ML VIAL ONE (12:34)
[2018-02-14] MEDS ORDERED: ROCURONIUM 100 MG/10 ML VIAL IV ONE (12:34)
[2018-02-14] MEDS ORDERED: PROPOFOL 200 MG/20 ML VIAL IV ONE (12:34)
[2018-02-14] MEDS: DILTIAZEM CD 240 MG CAPSULE PO SCH (12:42)
[2018-02-14] MEDS: ENOXAPARIN 40 MG/0.4 ML SYRINGE SUBCUT SCH (12:42)
[2018-02-14] MEDS: PANTOPRAZOLE 40 MG TABLET PO SCH (12:43)
[2018-02-14] MEDS: CETIRIZINE 10 MG TABLET PO SCH (12:43)
[2018-02-14] MEDS: FERROUS SULFATE 325 MG TABLET PO SCH ×2 (12:43→20:17)
[2018-02-14] MEDS ORDERED: hydrALAZINE 20 MG/1 ML VIAL IV PRN (12:58)
[2018-02-14] MEDS ORDERED: SEVOFLURANE 1 UNIT/15 MINUTE INH ONE (13:04)
[2018-02-14] MEDS: VALSARTAN/HCTZ 160-12.5 MG TABLET PO SCH (13:24)
[2018-02-14] MEDS: ONDANSETRON 4 MG/2 ML VIAL IV PRN ×2 (14:25→20:16)
[2018-02-14] MEDS: SIMVASTATIN 10 MG TABLET PO SCH (20:17)
[2018-02-15] MEDS: HYDROmorphone 2 MG/1 ML VIAL IV PRN ×7 (01:53→23:15)
[2018-02-15 05:14] LABS: Basophils % 0.3 % (0.0-0.8); Eosinophils # 0.2 10*3/uL (0.0-0.87); Eosinophils % 2.9 % (0.00-10.9); Hematocrit 33.2 VOL% (42.0-52.0); Hemoglobin 10.7 GM/DL (14.0-18.0); Immature Granulocytes % 0.6 %; Immature Granulocytes Absolute 0.05 #; Lymphocytes # 2.3 10*3/uL (1.4-4.0); Lymphocytes % 29.2 % (21.2-54.2); Mean Corpuscular HGB Conc 32.2 GM/DL (32-36); Mean Corpuscular Hemoglobin 30 PG (27-34); Mean Corpuscular Volume 94.3 FL (87-102); Mean Platelet Volume 10.1 FL (9.6-12.0); Monocytes # 0.8 10*3/uL (0.11-0.8); Monocytes % 10.3 % (1.7-12.7); Neutrophils # 4.5 10*3/uL (1.4-7.4); Neutrophils % 56.7 % (38.7-73.9); Platelet Count 266 T/CUMM (130-400); Red Blood Count 3.52 MC/CUMM (3.8-5.5); Red Cell Distribution Width 12.1 % (9.3-17.3); White Blood Count 7.9 T/CUMM (4-12)
[2018-02-15 05:40] LABS: Albumin 2.8 G/DL (3.4-5.0); Bilirubin,Total 0.8 MG/DL (0.2-1.0); Calcium 8.9 MG/DL (8.5-10.1); Osmolality,Calculated 271.8 MOS/KG (273-304); Potassium 3.9 MMOL/L (3.5-5.1); Total Protein 7.9 G/DL (6.4-8.3)
[2018-02-15] MEDS: PIPERACILLIN/TAZOBACTAM 3,375 MG in SODIUM CHLORIDE 0.9% 100 ML IV SCH (06:01)
[2018-02-15] MEDS ORDERED: HYDROmorphone 2 MG/1 ML VIAL IV ONE (06:58)
[2018-02-15] MEDS: ONDANSETRON 4 MG/2 ML VIAL IV PRN (07:03)
[2018-02-15] MEDS: LACTATED RINGERS 1,000 ML IV SCH ×3 (07:07→23:53)
[2018-02-15] MEDS: CETIRIZINE 10 MG TABLET PO SCH (09:17)
[2018-02-15] MEDS: FERROUS SULFATE 325 MG TABLET PO SCH ×2 (09:17→20:06)
[2018-02-15] MEDS: PANTOPRAZOLE 40 MG TABLET PO SCH (09:17)
[2018-02-15] MEDS: VALSARTAN/HCTZ 160-12.5 MG TABLET PO SCH (09:17)
[2018-02-15] MEDS: DILTIAZEM CD 240 MG CAPSULE PO SCH (09:17)
[2018-02-15] MEDS: MEPERIDINE 25 MG/1 ML VIAL IV PRN (11:34)
[2018-02-15] MEDS: ENOXAPARIN 40 MG/0.4 ML SYRINGE SUBCUT SCH (11:57)
[2018-02-15] MEDS: SIMVASTATIN 10 MG TABLET PO SCH (20:06)
[2018-02-16] MEDS: HYDROmorphone 2 MG/1 ML VIAL IV PRN ×4 (01:26→12:19)
[2018-02-16 05:18] LABS: Basophils % 0.3 % (0.0-0.8); Eosinophils # 0.3 10*3/uL (0.0-0.87); Eosinophils % 3.4 % (0.00-10.9); Immature Granulocytes % 0.5 %; Immature Granulocytes Absolute 0.05 #; Lymphocytes # 2.4 10*3/uL (1.4-4.0); Lymphocytes % 25.4 % (21.2-54.2); Mean Corpuscular HGB Conc 32.3 GM/DL (32-36); Mean Corpuscular Hemoglobin 30 PG (27-34); Mean Corpuscular Volume 94.2 FL (87-102); Mean Platelet Volume 10.1 FL (9.6-12.0); Monocytes # 1.1 10*3/uL (0.11-0.8); Monocytes % 12.1 % (1.7-12.7); Neutrophils # 5.5 10*3/uL (1.4-7.4); Neutrophils % 58.3 % (38.7-73.9); Platelet Count 276 T/CUMM (130-400); Red Blood Count 3.29 MC/CUMM (3.8-5.5); Red Cell Distribution Width 11.8 % (9.3-17.3); White Blood Count 9.4 T/CUMM (4-12)
[2018-02-16 05:35] LABS: Albumin 2.7 G/DL (3.4-5.0); Bilirubin,Total 0.8 MG/DL (0.2-1.0); Calcium 8.7 MG/DL (8.5-10.1); Osmolality,Calculated 269.8 MOS/KG (273-304); Potassium 3.9 MMOL/L (3.5-5.1); Total Protein 7.5 G/DL (6.4-8.3)
[2018-02-16] MEDS: DILTIAZEM CD 240 MG CAPSULE PO SCH (08:17)
[2018-02-16] MEDS: PANTOPRAZOLE 40 MG TABLET PO SCH (08:18)
[2018-02-16] MEDS: CETIRIZINE 10 MG TABLET PO SCH (08:18)
[2018-02-16] MEDS: FERROUS SULFATE 325 MG TABLET PO SCH (08:18)
[2018-02-16] MEDS: VALSARTAN/HCTZ 160-12.5 MG TABLET PO SCH (08:26)
[2018-02-16 17:43] VITALS: BP 139/87
== END 2018-02-16 16:00 | disposition home or self-care (01) | DRG 417 ==
LOC: EDUNIT# → N.EDINP 05:47 → N.ED 05:47 → N.EDINP 10:05 → N.5E 10:30
PROVIDERS: ADMIT Surgery; ATTEND Surgery
PROC: LAPCHOL (2018-02-12 13:20)
PROC: ERCPWSP (ICD-10-PCS; 2018-02-14 11:35)

== ENCOUNTER 2018-11-24 20:43 | Inpatient (IN) ==
[2018-11-24] MEDS ORDERED: ALBUTEROL/IPRATROPIUM 3 ML NEB RESP TX STA (21:40)
[2018-11-24] MEDS ORDERED: methylPREDNISolone SOD SUC 125 MG/2 ML VIAL IV STA (21:40)
[2018-11-24 22:04] LABS: Basophils % 0.5 % (0.0-0.8); Eosinophils # 0.2 10*3/uL (0.0-0.87); Eosinophils % 2.9 % (0.00-10.9); Hematocrit 39.6 VOL% (42.0-52.0); Hemoglobin 13.4 GM/DL (14.0-18.0); Immature Granulocytes % 0.3 %; Immature Granulocytes Absolute 0.02 #; Lymphocytes # 3.1 10*3/uL (1.4-4.0); Lymphocytes % 49.7 % (21.2-54.2); Mean Corpuscular HGB Conc 33.8 GM/DL (32-36); Mean Corpuscular Volume 93.6 FL (87-102); Mean Platelet Volume 9.5 FL (9.6-12.0); Monocytes % 10.8 % (1.7-12.7); Neutrophils % 35.8 % (38.7-73.9); Platelet Count 299 T/CUMM (130-400); Red Blood Count 4.23 MC/CUMM (3.8-5.5); Red Cell Distribution Width 12.6 % (9.3-17.3); White Blood Count 6.2 T/CUMM (4-12)
[2018-11-24 22:22] LABS: Bilirubin,Total 0.4 MG/DL (0.2-1.0); Osmolality,Calculated 275.7 MOS/KG (273-304); Total Protein 8.7 G/DL (6.4-8.3)
[2018-11-24] MEDS ORDERED: SODIUM CHLORIDE 0.9% 1,000 ML IV STA (22:57)
[2018-11-24] MEDS ORDERED: PROPOFOL 200 MG/20 ML VIAL IV STA (23:26)
[2018-11-25] MEDS ORDERED: HYDROmorphone 2 MG/1 ML VIAL IV STA (00:19)
[2018-11-25 00:27] LABS: Eosinophils 3 % (0-10); Lymphocytes 58 % (20-55); Segmented Neutrophils 36 % (50-85); Total Cells Counted 100
[2018-11-25 00:28] LABS: Anisocytosis 1+; Platelet Estimate Adequate; Polychromasia Slight
[2018-11-25] MEDS ORDERED: ALBUTEROL/IPRATROPIUM 3 ML NEB RESP TX PRN (00:43)
[2018-11-25] MEDS ORDERED: ACETAMINOPHEN 325 MG TABLET PO PRN (00:43)
[2018-11-25] MEDS ORDERED: FLUTICASONE 50 MCG NASAL SPRAY 16 GM BOTTLE BOTH NARES PRN (00:43)
[2018-11-25] MEDS ORDERED: BISACODYL 5 MG TABLET PO PRN (00:43)
[2018-11-25] MEDS ORDERED: CHLORPHENIRAMINE PHENYLEPHRINE PO PRN (00:43)
[2018-11-25] MEDS ORDERED: INFLUENZA VIRUS VACCINE 0.5 ML SYRINGE IM ONE (03:20)
[2018-11-25] MEDS: HYDROmorphone 2 MG/1 ML VIAL IV PRN ×4 (03:23→20:26)
[2018-11-25] MEDS: ONDANSETRON 4 MG/2 ML VIAL IV PRN (03:27)
[2018-11-25 07:37] LABS: Basophils % 0.2 % (0.0-0.8); Hematocrit 40.4 VOL% (42.0-52.0); Hemoglobin 13.6 GM/DL (14.0-18.0); Immature Granulocytes % 0.4 %; Immature Granulocytes Absolute 0.02 #; Lymphocytes # 0.9 10*3/uL (1.4-4.0); Lymphocytes % 15.5 % (21.2-54.2); Mean Corpuscular HGB Conc 33.7 GM/DL (32-36); Mean Corpuscular Volume 92.9 FL (87-102); Mean Platelet Volume 10.2 FL (9.6-12.0); Monocytes % 1.3 % (1.7-12.7); Neutrophils % 82.6 % (38.7-73.9); Platelet Count 321 T/CUMM (130-400); Red Blood Count 4.35 MC/CUMM (3.8-5.5); Red Cell Distribution Width 12.5 % (9.3-17.3); White Blood Count 5.5 T/CUMM (4-12)
[2018-11-25 08:25] LABS: Lymphocytes 18 % (20-55); Platelet Estimate Normal; Polychromasia Slight; Segmented Neutrophils 82 % (50-85); Total Cells Counted 100
[2018-11-25] MEDS: VALSARTAN/HCTZ 160-12.5 MG TABLET PO SCH (08:32)
[2018-11-25] MEDS: CELECOXIB 200 MG CAPSULE PO SCH ×2 (08:32→20:33)
[2018-11-25] MEDS: CETIRIZINE 10 MG TABLET PO SCH (08:32)
[2018-11-25] MEDS: PANTOPRAZOLE 40 MG TABLET PO SCH (08:32)
[2018-11-25] MEDS: COLCHICINE 0.6 MG CAPSULE PO SCH (08:33)
[2018-11-25] MEDS: DILTIAZEM CD 240 MG CAPSULE PO SCH (08:33)
[2018-11-25] MEDS: amLODIPine 5 MG TABLET PO SCH (08:33)
[2018-11-25] MEDS: FERROUS SULFATE 325 MG TABLET PO SCH ×2 (08:34→20:26)
[2018-11-25] MEDS: ALLOPURINOL 100 MG TABLET PO SCH (08:34)
[2018-11-25] MEDS ORDERED: Umeclidinium-Vilanterol [Anoro Ellipta] INH SCH (09:00)
[2018-11-25] MEDS ORDERED: SIMVASTATIN 10 MG TABLET PO SCH (09:00)
[2018-11-26] MEDS: HYDROmorphone 2 MG/1 ML VIAL IV PRN ×5 (01:56→20:51)
[2018-11-26] MEDS: CELECOXIB 200 MG CAPSULE PO SCH ×2 (08:51→20:52)
[2018-11-26] MEDS: amLODIPine 5 MG TABLET PO SCH (08:51)
[2018-11-26] MEDS: FERROUS SULFATE 325 MG TABLET PO SCH ×2 (08:51→20:52)
[2018-11-26] MEDS: COLCHICINE 0.6 MG CAPSULE PO SCH (08:51)
[2018-11-26] MEDS: DILTIAZEM CD 240 MG CAPSULE PO SCH (08:51)
[2018-11-26] MEDS: VALSARTAN/HCTZ 160-12.5 MG TABLET PO SCH (08:52)
[2018-11-26] MEDS: ALLOPURINOL 100 MG TABLET PO SCH (08:52)
[2018-11-26] MEDS: PANTOPRAZOLE 40 MG TABLET PO SCH (08:52)
[2018-11-26] MEDS: CETIRIZINE 10 MG TABLET PO SCH (08:53)
[2018-11-26] MEDS ORDERED: SIMVASTATIN 10 MG TABLET PO SCH (21:00)
[2018-11-27] MEDS: HYDROmorphone 2 MG/1 ML VIAL IV PRN ×5 (01:03→17:09)
[2018-11-27] MEDS: DILTIAZEM CD 240 MG CAPSULE PO SCH (08:10)
[2018-11-27] MEDS: ALLOPURINOL 100 MG TABLET PO SCH (08:11)
[2018-11-27] MEDS: CETIRIZINE 10 MG TABLET PO SCH (08:11)
[2018-11-27] MEDS: CELECOXIB 200 MG CAPSULE PO SCH (08:11)
[2018-11-27] MEDS: COLCHICINE 0.6 MG CAPSULE PO SCH (08:11)
[2018-11-27] MEDS: amLODIPine 5 MG TABLET PO SCH (08:11)
[2018-11-27] MEDS: PANTOPRAZOLE 40 MG TABLET PO SCH (08:12)
[2018-11-27] MEDS: FERROUS SULFATE 325 MG TABLET PO SCH (08:12)
[2018-11-27] MEDS: VALSARTAN/HCTZ 160-12.5 MG TABLET PO SCH (08:16)
[2018-11-27] MEDS: ONDANSETRON 4 MG/2 ML VIAL IV PRN (09:36)
[2018-11-27 15:49] VITALS: BP 163/78
== END 2018-11-27 18:40 | disposition hospice, home (50) | DRG 200 ==
LOC: N.ED 20:43 → N.EDINP 11-25 00:26 → SUATTDRO 11-25 00:26 → N.5E 11-25 01:58 → N.CC 11-26 18:12 → N.5E 11-27 10:53
PROVIDERS: ADMIT Internal Medicine; ATTEND Internal Medicine

== ENCOUNTER 2019-07-16 05:43 | Inpatient (IN) ==
[2019-07-16] MEDS ORDERED: DEXAMETHASONE 4 MG/1 ML VIAL IV ONE (06:00)
[2019-07-16] MEDS ORDERED: LIDOCAINE 1%/EPI INJ 20 ML VIAL ONE (06:07)
[2019-07-16] MEDS ORDERED: MUPIROCIN 2% OINT 22 GM TUBE TOP ONE (06:07)
[2019-07-16] MEDS ORDERED: SCOPOLAMINE 1.5 MG PATCH TRANSDERM ONE ×2 (06:39→06:41)
[2019-07-16] MEDS: LACTATED RINGERS 1,000 ML IV SCH ×3 (06:43→15:38)
[2019-07-16] MEDS ORDERED: cefTRIAXone 1,000 MG VIAL ONE (07:53)
[2019-07-16] MEDS ORDERED: cefTRIAXone 1,000 MG in SYRINGE 1 EACH IV ONE (08:16)
[2019-07-16] MEDS ORDERED: FLUTICASONE 50 MCG NASAL SPRAY 16 GM BOTTLE BOTH NARES PRN (12:28)
[2019-07-16] MEDS ORDERED: BISACODYL 5 MG TABLET PO PRN (12:28)
[2019-07-16] MEDS ORDERED: traMADol 50 MG TABLET PO PRN (12:28)
[2019-07-16] MEDS ORDERED: CHLORPHENIRAMINE PHENYLEPHRINE PO PRN (12:28)
[2019-07-16] MEDS ORDERED: ALBUTEROL/IPRATROPIUM 3 ML NEB RESP TX PRN (12:28)
[2019-07-16] MEDS ORDERED: diphenhydrAMINE 50 MG/1 ML VIAL IV PRN (12:30)
[2019-07-16] MEDS ORDERED: ONDANSETRON 4 MG/2 ML VIAL IV PRN ×2 (12:30→12:35)
[2019-07-16] MEDS ORDERED: HYDROmorphone 2 MG/1 ML VIAL IV PRN (12:35)
[2019-07-16] MEDS ORDERED: LIDOCAINE 2% 5 ML VIAL ONE (12:59)
[2019-07-16] MEDS ORDERED: propofoL 200 MG/20 ML VIAL IV ONE (12:59)
[2019-07-16] MEDS ORDERED: fentaNYL 250 MCG/5 ML VIAL ONE (13:00)
[2019-07-16] MEDS ORDERED: SEVOFLURANE 1 UNIT/15 MINUTE INH ONE (13:00)
[2019-07-16] MEDS ORDERED: MINERAL OIL/PETROLATUM OPH OINT 3.5 GM TUBE ONE (13:00)
[2019-07-16] MEDS ORDERED: ONDANSETRON 4 MG/2 ML VIAL ONE (13:01)
[2019-07-16] MEDS ORDERED: SODIUM CHLORIDE 0.9% 250 ML IV ONE (13:01)
[2019-07-16] MEDS ORDERED: LACTATED RINGERS 2,000 ML IV ONE (13:01)
[2019-07-16] MEDS ORDERED: PHENYLEPHRINE 10 MG/1 ML VIAL IV ONE (13:01)
[2019-07-16] MEDS ORDERED: SUCCINYLCHOLINE 200 MG/10 ML VIAL ONE (13:01)
[2019-07-16] MEDS ORDERED: ROCURONIUM 100 MG/10 ML VIAL IV ONE (13:01)
[2019-07-16] MEDS ORDERED: MIDAZOLAM 2 MG/2 ML VIAL ONE ×2 (13:02)
[2019-07-16] MEDS ORDERED: KETAMINE 500 MG/10 ML VIAL ONE (13:05)
[2019-07-16] MEDS: DEXAMETHASONE 4 MG/1 ML VIAL IV SCH ×2 (17:01→21:56)
[2019-07-16] MEDS: AMOXICILLIN 875 MG TABLET PO SCH (21:57)
[2019-07-16] MEDS: cefTRIAXone 1,000 MG in SYRINGE 1 EACH IV SCH (21:57)
[2019-07-16] MEDS: CELECOXIB 200 MG CAPSULE PO SCH (21:57)
[2019-07-17] MEDS: DEXAMETHASONE 4 MG/1 ML VIAL IV SCH ×2 (05:30→10:34)
[2019-07-17] MEDS ORDERED: NON-FORMULARY MEDICATION (Umeclidinium-Vilanterol [Anoro Ellipta] 1 PUFF) INH SCH (09:00)
[2019-07-17] MEDS: DILTIAZEM CD 240 MG CAPSULE PO SCH (09:12)
[2019-07-17] MEDS: AMOXICILLIN 875 MG TABLET PO SCH ×2 (09:12→21:50)
[2019-07-17] MEDS: PANTOPRAZOLE 40 MG TABLET PO SCH (09:13)
[2019-07-17] MEDS: COLCHICINE 0.6 MG CAPSULE PO SCH (09:13)
[2019-07-17] MEDS: allopurinoL 100 MG TABLET PO SCH (09:13)
[2019-07-17] MEDS: CELECOXIB 200 MG CAPSULE PO SCH ×2 (09:13→21:50)
[2019-07-17] MEDS: amLODIPine 5 MG TABLET PO SCH (09:13)
[2019-07-17] MEDS: CETIRIZINE 10 MG TABLET PO SCH (09:14)
[2019-07-17] MEDS: cefTRIAXone 1,000 MG in SYRINGE 1 EACH IV SCH ×2 (09:17→21:50)
[2019-07-17] MEDS ORDERED: DEXAMETHASONE 4 MG/1 ML VIAL IV SCH (10:30)
[2019-07-17] MEDS ORDERED: ALUM/MAG/SIMETH/LIDO VISC 1:1 30 ML BOTTLE PO ONE (11:53)
[2019-07-17 12:21] LABS: Alanine Aminotransferase 47 U/L (16-61); Albumin 3.4 G/DL (3.4-5.0); Alkaline Phosphatase 101 U/L (45-117); Aspartate Amino Transferase 29 U/L (0-37); Blood Urea Nitrogen 21 MG/DL (7-18); Calcium 9.2 MG/DL (8.5-10.1); Estimated Glom Filtration Rate 82 ML/MIN; Glucose 121 MG/DL (74-106); Osmolality,Calculated 269.4 MOS/KG (273-304); Total Protein 7.8 G/DL (6.4-8.3); Troponin I < 0.015 NG/ML (0.00-0.045)
[2019-07-17] MEDS: LACTATED RINGERS 1,000 ML IV SCH (12:30)
[2019-07-17] MEDS: ACETAMINOPHEN 325 MG TABLET PO PRN (17:41)
[2019-07-17] MEDS ORDERED: SIMVASTATIN 10 MG TABLET PO SCH (21:00)
[2019-07-18] MEDS: ACETAMINOPHEN 325 MG TABLET PO PRN (05:22)
[2019-07-18] MEDS: AMOXICILLIN 875 MG TABLET PO SCH (10:02)
[2019-07-18] MEDS: DILTIAZEM CD 240 MG CAPSULE PO SCH (10:03)
[2019-07-18] MEDS: CELECOXIB 200 MG CAPSULE PO SCH (10:03)
[2019-07-18] MEDS: COLCHICINE 0.6 MG CAPSULE PO SCH (10:03)
[2019-07-18] MEDS: amLODIPine 5 MG TABLET PO SCH (10:04)
[2019-07-18] MEDS: allopurinoL 100 MG TABLET PO SCH (10:04)
[2019-07-18] MEDS: PANTOPRAZOLE 40 MG TABLET PO SCH (10:04)
[2019-07-18] MEDS: CETIRIZINE 10 MG TABLET PO SCH (10:04)
[2019-07-18] MEDS: cefTRIAXone 1,000 MG in SYRINGE 1 EACH IV SCH (10:11)
[2019-07-18 11:26] VITALS: BP 163/84
== END 2019-07-18 11:20 | disposition home or self-care (01) | DRG 130 ==
LOC: N.OR 05:43 → N.SDSINP 05:44 → N.3E 14:27
PROVIDERS: ADMIT Otolaryngology; ATTEND Otolaryngology

== ENCOUNTER 2019-07-23 23:32 | Observation (INO) ==
[2019-07-24 01:40] LABS: Osmolality,Calculated 269.1 MOS/KG (273-304)
[2019-07-24] MEDS ORDERED: KETOROLAC 30 MG/1 ML VIAL IV STA (01:49)
[2019-07-24] MEDS ORDERED: GLUCAGON 1 MG VIAL IM PRN (01:55)
[2019-07-24] MEDS ORDERED: DEXTROSE 50% 25 GM/50 ML VIAL IV PRN (01:55)
[2019-07-24] MEDS ORDERED: ONDANSETRON 4 MG/2 ML VIAL IV PRN ×2 (01:55→13:58)
[2019-07-24] MEDS ORDERED: hydrALAZINE 20 MG/1 ML VIAL IV PRN (01:55)
[2019-07-24 02:04] LABS: Basophils % 0.4 % (0.0-0.8); Eosinophils # 0.1 10*3/uL (0.0-0.87); Eosinophils % 1.8 % (0.00-10.9); Hematocrit 36.5 VOL% (42.0-52.0); Hemoglobin 11.8 GM/DL (14.0-18.0); Immature Granulocytes % 1.5 %; Immature Granulocytes Absolute 0.12 #; Lymphocytes # 2.4 10*3/uL (1.4-4.0); Lymphocytes % 29.9 % (21.2-54.2); Mean Corpuscular HGB Conc 32.3 GM/DL (32-36); Mean Corpuscular Volume 96.6 FL (87-102); Mean Platelet Volume 9.7 FL (9.6-12.0); Monocytes % 9.5 % (1.7-12.7); Neutrophils % 56.9 % (38.7-73.9); Platelet Count 279 T/CUMM (130-400); Red Blood Count 3.78 MC/CUMM (3.8-5.5); Red Cell Distribution Width 12.4 % (9.3-17.3)
[2019-07-24] MEDS: SODIUM CHLORIDE 0.9% 1,000 ML IV SCH ×2 (04:44→14:55)
[2019-07-24] MEDS: MORPHINE 4 MG/1 ML VIAL IV PRN ×3 (04:44→21:05)
[2019-07-24 06:40] LABS: Basophils % 0.3 % (0.0-0.8); Eosinophils # 0.2 10*3/uL (0.0-0.87); Eosinophils % 2.4 % (0.00-10.9); Hematocrit 36.6 VOL% (42.0-52.0); Hemoglobin 11.6 GM/DL (14.0-18.0); Immature Granulocytes % 1.1 %; Immature Granulocytes Absolute 0.08 #; Lymphocytes # 2.4 10*3/uL (1.4-4.0); Lymphocytes % 34.2 % (21.2-54.2); Mean Corpuscular HGB Conc 31.7 GM/DL (32-36); Mean Corpuscular Volume 96.3 FL (87-102); Mean Platelet Volume 9.7 FL (9.6-12.0); Monocytes % 11.1 % (1.7-12.7); Neutrophils % 50.9 % (38.7-73.9); Platelet Count 268 T/CUMM (130-400); Red Cell Distribution Width 12.6 % (9.3-17.3)
[2019-07-24 06:59] LABS: Calcium 8.7 MG/DL (8.5-10.1); Osmolality,Calculated 268.1 MOS/KG (273-304)
[2019-07-24] MEDS: ALBUTEROL/IPRATROPIUM 3 ML NEB RESP TX SCH ×3 (07:12→19:13)
[2019-07-24] MEDS: PANTOPRAZOLE 40 MG VIAL IV SCH (09:09)
[2019-07-24] MEDS ORDERED: LIDOCAINE 1%/EPI INJ 20 ML VIAL ONE (12:24)
[2019-07-24] MEDS ORDERED: MUPIROCIN 2% OINT 22 GM TUBE TOP ONE (12:24)
[2019-07-24] MEDS ORDERED: cefTRIAXone 1,000 MG VIAL ONE (13:08)
[2019-07-24] MEDS ORDERED: MIDAZOLAM 2 MG/2 ML VIAL ONE (13:59)
[2019-07-24] MEDS ORDERED: SUCCINYLCHOLINE 200 MG/10 ML VIAL ONE (13:59)
[2019-07-24] MEDS ORDERED: DEXAMETHASONE 4 MG/1 ML VIAL ONE (13:59)
[2019-07-24] MEDS ORDERED: SEVOFLURANE 1 UNIT/15 MINUTE INH ONE (13:59)
[2019-07-24] MEDS ORDERED: propofoL 200 MG/20 ML VIAL IV ONE (13:59)
[2019-07-24] MEDS ORDERED: LIDOCAINE 2% 5 ML VIAL ONE (13:59)
[2019-07-24] MEDS ORDERED: fentaNYL 100 MCG/2 ML VIAL ONE (13:59)
[2019-07-24] MEDS ORDERED: ROCURONIUM 100 MG/10 ML VIAL IV ONE (13:59)
[2019-07-24] MEDS: HYDROmorphone 2 MG/1 ML VIAL IV PRN ×2 (13:59→14:04)
[2019-07-24] MEDS ORDERED: ONDANSETRON 4 MG/2 ML VIAL ONE ×2 (13:59→14:00)
[2019-07-24] MEDS ORDERED: HYDROmorphone 2 MG/1 ML VIAL ONE (14:00)
[2019-07-24] MEDS ORDERED: ALUM/MAG/SIMETH/LIDO VISC 1:1 30 ML BOTTLE PO PRN (20:42)
[2019-07-24] MEDS: cefTRIAXone 2,000 MG in SYRINGE 1 EACH IV SCH (21:08)
[2019-07-25] MEDS: ALBUTEROL/IPRATROPIUM 3 ML NEB RESP TX SCH ×3 (00:23→13:13)
[2019-07-25] MEDS: MORPHINE 4 MG/1 ML VIAL IV PRN ×2 (04:32→12:31)
[2019-07-25] MEDS: cefTRIAXone 2,000 MG in SYRINGE 1 EACH IV SCH (10:05)
[2019-07-25] MEDS: SODIUM CHLORIDE 0.9% 1,000 ML IV SCH ×2 (10:05→10:06)
[2019-07-25] MEDS: PANTOPRAZOLE 40 MG VIAL IV SCH (10:06)
[2019-07-25] MEDS ORDERED: CHLORPHENIRAMINE PHENYLEPHRINE PO PRN (10:41)
[2019-07-25] MEDS ORDERED: ALBUTEROL/IPRATROPIUM 3 ML NEB RESP TX PRN (10:41)
[2019-07-25] MEDS ORDERED: FLUTICASONE 50 MCG NASAL SPRAY 16 GM BOTTLE BOTH NARES PRN (10:41)
[2019-07-25] MEDS ORDERED: ACETAMINOPHEN 325 MG TABLET PO PRN (10:41)
[2019-07-25] MEDS ORDERED: DILTIAZEM CD 240 MG CAPSULE PO SCH (10:45)
[2019-07-25] MEDS ORDERED: UMECLIDINIUM VILANTEROL INH SCH (10:45)
[2019-07-25] MEDS ORDERED: COLCHICINE 0.6 MG CAPSULE PO SCH (10:45)
[2019-07-25] MEDS ORDERED: CELECOXIB 200 MG CAPSULE PO SCH (11:00)
[2019-07-25] MEDS ORDERED: amLODIPine 5 MG TABLET PO SCH (11:00)
[2019-07-25] MEDS ORDERED: CETIRIZINE 10 MG TABLET PO SCH (11:00)
[2019-07-25] MEDS ORDERED: allopurinoL 100 MG TABLET PO SCH (11:00)
[2019-07-25] MEDS ORDERED: SIMVASTATIN 10 MG TABLET PO SCH (11:00)
[2019-07-25 13:43] VITALS: BP 148/87
[2019-07-25] MEDS ORDERED: SUCRALFATE 1 GM TABLET PO SCH (21:00)
== END 2019-07-25 13:47 | disposition home or self-care (01) ==
LOC: N.ED 23:32 → N.EDINP 23:32 → N.3E 07-24 04:27
PROVIDERS: ADMIT Otolaryngology; ATTEND Otolaryngology

== ENCOUNTER 2020-07-29 10:20 | Observation (INO) ==
[2020-07-29] MEDS ORDERED: SODIUM CHLORIDE 0.9% 1,000 ML IV STA (10:29)
[2020-07-29 10:47] LABS: Basophils % 0.8 % (0.0-0.8); Eosinophils # 0.1 10*3/uL (0.0-0.87); Eosinophils % 2.8 % (0.00-10.9); Hematocrit 35.6 VOL% (42.0-52.0); Hemoglobin 12.3 GM/DL (14.0-18.0); Immature Granulocytes % 0.5 %; Immature Granulocytes Absolute 0.02 #; Lymphocytes # 1.2 10*3/uL (1.4-4.0); Lymphocytes % 31.2 % (21.2-54.2); Mean Corpuscular HGB Conc 34.6 GM/DL (32-36); Mean Corpuscular Volume 94.4 FL (87-102); Mean Platelet Volume 8.9 FL (9.6-12.0); Monocytes % 14.4 % (1.7-12.7); Neutrophils % 50.3 % (38.7-73.9); Platelet Count 346 T/CUMM (130-400); Red Blood Count 3.77 MC/CUMM (3.8-5.5); Red Cell Distribution Width 12.1 % (9.3-17.3); White Blood Count 3.9 T/CUMM (4-12)
[2020-07-29 10:56] LABS: PT Patient Result 10.9 SECS (10.5-12.0)
[2020-07-29 11:06] LABS: Albumin 3.9 G/DL (3.4-5.0); Bilirubin,Total 0.6 MG/DL (0.2-1.0); Calcium 9.3 MG/DL (8.5-10.1); Osmolality,Calculated 283.1 MOS/KG (273-304); Potassium 3.4 MMOL/L (3.5-5.1); Total Protein 7.4 G/DL (6.4-8.2)
[2020-07-29 11:27] LABS: Bilirubin,Urine Negative (Negative); Blood, Urine Negative (Negative); Glucose,Urine (UA) Negative (Negative); Ketones,Urine Negative (Negative); Nitrite,Urine Negative (Negative); Protein,Urine 30 MG/DL; RBC,Urine 2 /HPF (0-4); Squamous Epithelial Cell,Urine Occasional /HPF (0-10); Urine Appearance CLEAR (Clear); Urine Color Straw (Yellow); Urine Specific Gravity 1.009 (1.001-1.035); Urine Urobilinogen < 2.0 EU/DL (0.2-1.0)
[2020-07-29 11:53] LABS: Barbiturates Screen,Urine Negative (Negative); Benzodiazepines Screen,Urine Negative (Negative); Cannabinoid Screen,Urine Negative (Negative); Opiate Screen,Urine Positive (Negative); Phencyclidine Screen,Urine Negative (Negative)
[2020-07-29] MEDS ORDERED: DEXTROSE 50% 25 GM/50 ML VIAL IV PRN (12:43)
[2020-07-29] MEDS ORDERED: ONDANSETRON 4 MG/2 ML VIAL IV PRN (12:43)
[2020-07-29] MEDS ORDERED: GLUCAGON 1 MG VIAL IM PRN (12:43)
[2020-07-29] MEDS ORDERED: BISACODYL 5 MG TABLET PO PRN (12:43)
[2020-07-29] MEDS ORDERED: ACETAMINOPHEN 325 MG TABLET PO PRN (12:43)
[2020-07-29] MEDS ORDERED: ALBUTEROL/IPRATROPIUM 3 ML NEB RESP TX PRN (12:43)
[2020-07-29] MEDS ORDERED: DOCUSATE SODIUM 100 MG CAPSULE PO PRN (12:43)
[2020-07-29] MEDS ORDERED: POTASSIUM CHLORIDE 20 MEQ TABLET PO STA (12:59)
[2020-07-29] MEDS ORDERED: ENOXAPARIN 40 MG/0.4 ML SYRINGE SUBCUT SCH (13:00)
[2020-07-29] MEDS ORDERED: CLOPIDOGREL 75 MG TABLET PO SCH (16:00)
[2020-07-29 18:58] LABS: Bilirubin,Urine Negative (Negative); Blood, Urine Negative (Negative); Glucose,Urine (UA) Negative (Negative); Ketones,Urine Negative (Negative); Nitrite,Urine Negative (Negative); Protein,Urine Negative; RBC,Urine 1 /HPF (0-4); Urine Appearance CLEAR (Clear); Urine Color Straw (Yellow); Urine Specific Gravity 1.008 (1.001-1.035); Urine Urobilinogen < 2.0 EU/DL (0.2-1.0)
[2020-07-29] MEDS ORDERED: ATORVASTATIN 40 MG TABLET PO SCH (19:00)
[2020-07-29 20:08] LABS: Hematocrit 35.8 VOL% (42.0-52.0); Hemoglobin 11.9 GM/DL (14.0-18.0)
[2020-07-30 06:10] LABS: Basophils % 0.9 % (0.0-0.8); Eosinophils # 0.1 10*3/uL (0.0-0.87); Eosinophils % 4.2 % (0.00-10.9); Hemoglobin 11.4 GM/DL (14.0-18.0); Immature Granulocytes % 1.2 %; Immature Granulocytes Absolute 0.04 #; Lymphocytes # 0.7 10*3/uL (1.4-4.0); Lymphocytes % 20.1 % (21.2-54.2); Mean Corpuscular HGB Conc 32.6 GM/DL (32-36); Mean Corpuscular Volume 97.2 FL (87-102); Mean Platelet Volume 9.1 FL (9.6-12.0); Monocytes % 21.3 % (1.7-12.7); Neutrophils % 52.3 % (38.7-73.9); Platelet Count 347 T/CUMM (130-400); Red Cell Distribution Width 12.2 % (9.3-17.3); White Blood Count 3.3 T/CUMM (4-12)
[2020-07-30 06:33] LABS: Calcium 9.1 MG/DL (8.5-10.1); Eosinophils 6 % (0-10); Lymphocytes 20 % (20-55); Nucleated Red Blood Cells 1 (0-5); Osmolality,Calculated 279.3 MOS/KG (273-304); Platelet Estimate Normal; Potassium 4.1 MMOL/L (3.5-5.1); Risk Ratio 3.02; Segmented Neutrophils 65 % (50-85); Total Cells Counted 100; VLDL CHOLESTEROL 21.6 MG/DL
[2020-07-30 08:19] VITALS: BP 127/81
[2020-07-30] MEDS ORDERED: PANTOPRAZOLE 40 MG TABLET PO SCH (09:00)
[2020-07-30] MEDS ORDERED: COLCHICINE 0.6 MG CAPSULE PO SCH (09:00)
[2020-07-30] MEDS ORDERED: ASPIRIN EC 81 MG TABLET PO SCH (09:00)
[2020-07-30] MEDS ORDERED: UMECLIDINIUM VILANTEROL INH SCH (09:00)
[2020-07-30] MEDS ORDERED: DILTIAZEM CD 240 MG CAPSULE PO SCH (09:00)
[2020-07-30] MEDS ORDERED: CELECOXIB 200 MG CAPSULE PO SCH (09:00)
[2020-07-30] MEDS ORDERED: FEXOFENADINE 180 MG TABLET PO SCH (09:00)
[2020-07-30] MEDS ORDERED: allopurinoL 100 MG TABLET PO SCH (09:00)
[2020-07-30] MEDS ORDERED: amLODIPine 10 MG TABLET PO SCH (09:00)
[2020-07-30] MEDS ORDERED: ACTUATION BL INH SCH (09:00)
[2020-07-30] MEDS ORDERED: predniSONE 5 MG TABLET PO SCH (09:00)
== END 2020-07-30 11:15 | disposition home or self-care (01) ==
LOC: N.TELES 10:20 → N.ED 10:20 → N.TELES 16:27
PROVIDERS: ADMIT Internal Medicine; ATTEND Internal Medicine